=== PATIENT | male | born 1945 | race Caucasian/White ===

== ENCOUNTER 2018-07-14 13:33 | Emergency (ER) | payer OTHER ==
[~2018-07-14] VITALS: Ht 182.9 cm; Wt 86.2 kg
[2018-07-14 13:40] VITALS: BP 163/77
--- NOTE | 2018-07-14 14:04 | PHYS DOC ---
Adult General Chief Complaint Chief Complaint: LACERATION/AVULSION [facility] HPI Patient is a 72 year old male who 30 minutes prior to arrival was using a deep plastic tub and cut his left distal 5th digit on the tub. Patient also has an abrasion on the 4th digit. Last Tetanus shot was 5 years ago. Rates his pain as 7/10 and throbbing. Has cloth and ice on finger in room. Review of Systems Review of Systems Constitutional: Denies fever or chills [] Eyes: Denies change in visual acuity, redness, or eye pain [] HENT: Denies nasal congestion or sore throat [] Respiratory: Denies cough or shortness of breath [] Cardiovascular: No additional information not addressed in HPI [] GI: Denies abdominal pain, nausea, vomiting, bloody stools or diarrhea [] : Denies dysuria or hematuria [] Musculoskeletal: Denies back pain or joint pain [] Integument: Denies rash or skin lesions with exception of laceration to the L 5th digit, abrasion to L 4th digit, and abrasion to Left leg. Neurologic: Denies headache, focal weakness or sensory changes [] Endocrine: Denies polyuria or polydipsia [] Complete systems were reviewed and found to be within normal limits, except as documented in this note. Current Medications Current Medications Current Medications Medications (Trade) Dose Ordered Sig/[facility] Start Time Stop Time Status Last Admin Dose Admin Diphtheria/ Tetanus/Acell Pertussis (Boostrix) 0.5 ml ONCE ONCE 07/14/18 14:15 07/14/18 14:16 DC 07/14/18 14:28 0.5 ML Ketorolac Tromethamine (Toradol 30mg Vial) 30 mg 1X ONCE 07/14/18 14:30 07/14/18 14:31 DC 07/14/18 14:24 30 MG Lidocaine HCl (Lidocaine 1% 20ml Vial) 20 ml 1X ONCE 07/14/18 14:15 07/14/18 14:18 DC 07/14/18 14:29 20 ML Lidocaine HCl (Xylocaine-Mpf 1% 2ml Vial) 2 ml 1X ONCE 07/14/18 14:30 07/14/18 14:30 DC Allergies Allergies Allergies Coded Allergies Type Severity Reaction Last Updated Verified No Known Drug Allergies 07/14/18 No Physical Exam Physical Exam Constitutional: Well developed, well nourished, no acute distress, non-toxic appearance. [] HENT: Normocephalic, atraumatic, bilateral external ears normal, oropharynx moist, no oral exudates, nose normal. [] Eyes: PERRLA, EOMI, conjunctiva normal, no discharge. [] Neck: Normal range of motion, no tenderness, supple, no stridor. [] Cardiovascular:Heart rate regular rhythm, no murmur [] Lungs & Thorax: Bilateral breath sounds clear to auscultation [] Abdomen: Bowel sounds normal, soft, no tenderness, no masses, no pulsatile masses. [] Skin: Warm, dry, no erythema, no rash. Abrasion to the left 4th digit. Avulsion to the Left 5th distal digit. Back: No tenderness, no CVA tenderness. [] Extremities: No tenderness, no cyanosis, no clubbing, ROM intact, no edema. [] Neurologic: Alert and oriented X 3, normal motor function, normal sensory function, no focal deficits noted. [] Psychologic: Affect normal, judgement normal, mood normal. [] Current Patient Data Vital Signs Vital Signs Date Time Temp Pulse Resp B/P (MAP) Pulse Ox O2 Delivery O2 Flow Rate FiO2 07/14/18 13:40 97.7 77 20 163/77 (105) 98 Room Air 97.7 EKG EKG [] Radiology/Procedures Radiology/Procedures Pre-noel interpreted by Dr. Moore No acute fracture or dislocation.[] A digital block was performed with 3 mL of lidocaine without epi on the L 5th digit. No complications . Indication: Laceration on L 5th Digit Procedure: The patient was placed in the appropriate position and anesthesia was a digital block. The area was then cleansed with 120 mL of normal saline at high flow. Also scrubbed with iodine. The laceration was closed with 4-0 Ethilon sutures a total of 17 sutures. The wound area was then dressed with dressing and Neosporin. Total repaired wound length: 6 cm with a bi flap avulsion on the distal L 5th digit. The patient tolerated the procedure well. Complications: No complications. Course & Med Decision Making Course & Med Decision Making Pertinent Labs and Imaging studies reviewed. (See chart for details) Will get an x-ray of the left hand, tetanus shot, toradol, and perform a digit block and then sew the finger. Patient is agreeable. xray is negative will suture patient. Placed 17 sutures in patient finger. Will d/c home. Dragon Disclaimer Dragon Disclaimer This electronic medical record was generated, in whole or in part, using a voice recognition dictation system. Departure Departure Impression: Primary Impression: Laceration Disposition: HOME, SELF-CARE Condition: STABLE Patient Instructions: Fingertip Laceration, Laceration Care, Adult Additional Instructions: Please have sutures removed in 7-10 days. Keep dry the first 24 hours. Put Neosporin on the wound and keep clean. Come back to ER or go to primary care doctor if you notice any signs of infection. Scripts Cephalexin (KEFLEX) 500 Mg Capsule 1 CAP PO BID for 7 Days, #14 CAP Prov: LEO SHERMAN APRN 07/14/18 LEO SHERMAN APRN July 14, 2018 14:04
[2018-07-14] MEDS ORDERED: CEPH-264 PO (14:19)
[2018-07-14] MEDS: KETOROLAC 30 MG/ML VIAL. IM ONE (14:24)
--- NOTE | 2018-07-14 14:25 | RAD ---
HAND LEFT 3V History: Laceration to the left fifth digit, fall while cleaning out gutter Comparison: None. Findings: 4 views of the left hand with attention to the fifth digit are submitted. No radiographic foreign body, dislocation, or acute fracture is identified. There is soft tissue irregularity about the distal fifth phalanx compatible with laceration. Impression: 1. No acute fracture or foreign body is identified. Electronically signed by: Emery Castaneda MD (07/14/2018 2:22 PM) [id number]
[2018-07-14] MEDS: DIPHTH,PERTUSS(ACELL),TET TOX 0.5 ML DISP.SYRIN. VAX IM ONE (14:28)
[2018-07-14] MEDS: LIDOCAINE 1% Multi-Dose 20 ML VIAL. INJ ONE (14:29)
[2018-07-14] MEDS ORDERED: LIDOCAINE 1% PF 2 ML VIAL. INJ ONE (14:30)
[2018-07-14] MEDS: NEOMY/BACITR/POLYMYXIN OINT PACKET. TP ONE (16:00)
== END 2018-07-14 16:30 | disposition home or self-care (01) ==
LOC: ER 13:33
DX: S61.217A Laceration without foreign body of left little finger without damage to nail, initial encounter (principal); S60.415A Abrasion of left ring finger, initial encounter; W26.8XXA Contact with other sharp object(s), not elsewhere classified, initial encounter; Y93.89 Activity, other specified; Y92.89 Other specified places as the place of occurrence of the external cause; Y99.8 Other external cause status
CPT/HCPCS: 12002; 73130; 90471; 90715; 99284; J1885